=== PATIENT | female | born 1955 | race Caucasian/White ===

== ENCOUNTER → 2017-04-18 | Outpatient (CLI) | payer OTHER | LOC: FIMAGING 10:22 | PROVIDERS: ATTEND Family Medicine | DX: Z12.31 Encounter for screening mammogram for malignant neoplasm of breast (principal) | CPT/HCPCS: G0202 ==

== ENCOUNTER → 2017-07-12 | Outpatient (CLI) | payer OTHER | LOC: CIMAGING 13:57 | PROVIDERS: ATTEND Physical Medicine & Rehabilitation | DX: M54.9 Dorsalgia, unspecified (principal); Z96.643 Presence of artificial hip joint, bilateral | CPT/HCPCS: 73521-PO ==